=== PATIENT | male | born 1995 | race Caucasian/White ===

== ENCOUNTER 2017-02-09 20:23 | Emergency (ER) | payer BC ==
[~2017-02-09 20:23] MED LIST: HYDROCODONE-AP473 ML PO
[2017-02-09] MEDS ORDERED: BIAXIN250 M3 PO (20:41)
[2017-02-09] MEDS ORDERED: NORCO 5/3251 TAB PO (22:24)
== END 2017-02-09 23:11 ==
LOC: EDMED 20:23
PROC: 2W3DX1Z Immobilization of Left Lower Arm using Splint (ICD-10-PCS; principal; 2017-02-09)
DX: S62.212A Bennett's fracture, left hand, initial encounter for closed fracture (principal); S41.011A Laceration without foreign body of right shoulder, initial encounter; S30.811A Abrasion of abdominal wall, initial encounter; V29.40XA Motorcycle driver injured in collision with unspecified motor vehicles in traffic accident, initial encounter; Y92.410 Unspecified street and highway as the place of occurrence of the external cause